=== PATIENT | female | born 1995 | race Hispanic/Latino ===

== ENCOUNTER 2019-09-21 20:14 | Emergency (ER) | payer SELFPAY ==
[2019-09-21] MEDS ORDERED: Ibuprofen 200 MG TAB ONE (20:52)
--- NOTE | 2019-09-21 20:57 | RAD ---
XR Hand Lt 3 View STANDARD History: Index finger injury Comparison: None. Findings: Soft tissue amputation through the lateral margin of distal phalanx index finger. Likely ex posed bone without osseous amputation. No fracture. No radiopaque foreign object. Impression: Soft tissue amputation through the lateral margin distal phalanx soft tissue tuft index f davey as described.
== END 2019-09-21 21:51 | disposition home or self-care (01) ==
LOC: ERS 20:14
DX: S68.121A Partial traumatic metacarpophalangeal amputation of left index finger, initial encounter (principal); F41.9 Anxiety disorder, unspecified; F32.9 Major depressive disorder, single episode, unspecified; Z87.891 Personal history of nicotine dependence; W26.0XXA Contact with knife, initial encounter

== ENCOUNTER 2021-12-13 22:21 | Observation (INO) | payer OTHER, SELFPAY ==
[~2021-12-13 22:21] MED LIST: ISOVUE-370 76%-LOCM 1 ML ONE
[2021-12-13] MEDS ORDERED: Boostrix 0.5 ML (Tdap) VIAL ONE (22:38)
[2021-12-13] MEDS ORDERED: CEFAZOLIN 2 GM VIAL ONE (22:38)
[2021-12-13] MEDS ORDERED: Morphine 4 MG/ML VIAL ONE (22:38)
[2021-12-13 23:10] LABS: #Basophils 0.1 thou/uL (0.0-0.2); #Eosinphils 0.1 thou/uL (0.0-0.7); #Lymphocytes 4.5 thou/uL (1.20-3.40); #Monocytes 0.8 thou/uL (0.11-0.59); #Neutrophils 8.6 thou/uL (1.40-6.50); %Basophils 0.5 % (0.0-1.0); %Eosinophils 0.8 % (0.0-10.0); %Monocytes 5.6 % (0.0-10.0); %Neutrophils 61.2 % (42.0-75.0); Hemoglobin 11.6 g/dL (12.0-16.0); Mean Corpuscular HGB CONC 33.1 g/dL (32.0-36.0); Mean Corpuscular Hemoglobin 32.2 pg (27.0-31.0); Mean Corpuscular Volume 97.1 fL (78.0-98.0); Mean Platelet Volume 8.2 fL (7.4-10.4); Platelet Count 280 thou/uL (130-400); RBC Distribution Width 11.9 % (11.5-14.5); White Blood Cell (WBC) Count 14.1 thou/uL (4.8-10.8)
[2021-12-13] MEDS ORDERED: Lidocaine 1% w/Epinephrine 1:100K 20 ML VIAL ONE (23:10)
[2021-12-13] MEDS ORDERED: Bacitracin 1 PK ONE (23:10)
[2021-12-13 23:24] LABS: BHCG - Serum Negative (NEGATIVE); Pregs Control Background? CLEAR/WHITE (CLR/WHITE); Pregs Control Bar Appear? YES (CONTROL BAR)
[2021-12-13 23:33] LABS: ALT (SGPT) 19 U/L (8-55); AST (SGOT) 30 U/L (5-34); Albumin 3.5 g/dL (3.5-5.0); Alcohol Less than 10 mg/dL (Less than 10); Alkaline Phosphatase 69 U/L (40-110); Anion Gap 11 mmol/L (10-20); BUN (Urea Nitrogen) 13 mg/dL (7.0-18.7); Bilirubin, Total 0.3 mg/dL (0.2-1.2); Calc. Creatinine Clearance 0 mL/min (70-130); Calcium 8.8 mg/dL (7.8-10.44); Carbon Dioxide 22 mmol/L (22-29); Chloride 105 mmol/L (98-107); Globulin 2.7 g/dL (2.4-3.5); Glucose 148 mg/dL (70-105); Potassium 3.7 mmol/L (3.5-5.1); Protein, Total 6.2 g/dL (6.0-8.3); Sodium 134 mmol/L (136-145)
[2021-12-13] MEDS ORDERED: Midazolam HCl 2 mg/2 ml Vial ONE (23:46)
[2021-12-14] MEDS ORDERED: Tranexamic Acid 1,000 MG/10 ML VIAL ONE (00:56)
[2021-12-14] MEDS ORDERED: Dextrose 50% Abboject 50 ML SYRINGE SLOW IVP PRN (01:10)
[2021-12-14] MEDS ORDERED: Ondansetron PF 4 MG/2 ML Vial IVP PRN (01:10)
[2021-12-14] MEDS ORDERED: traMADol HCl 50 MG TAB PO PRN (01:10)
[2021-12-14] MEDS ORDERED: Dextrose 5% in Water 1,000 ML IV PRN (01:10)
[2021-12-14] MEDS ORDERED: Ondansetron ODT 4 MG TAB PO PRN (01:10)
[2021-12-14] MEDS ORDERED: Sodium Chloride 0.9% 1,000 ML IV SCH (03:00)
[2021-12-14 03:24] LABS: #Lymphocytes 1.1 thou/uL (1.20-3.40); #Monocytes 0.9 thou/uL (0.11-0.59); #Neutrophils 13.1 thou/uL (1.40-6.50); %Basophils 0.2 % (0.0-1.0); %Eosinophils 0.1 % (0.0-10.0); %Lymphocytes 7.4 % (21.0-51.0); %Monocytes 5.7 % (0.0-10.0); %Neutrophils 86.5 % (42.0-75.0); Hemoglobin 10.2 g/dL (12.0-16.0); Mean Corpuscular HGB CONC 32.7 g/dL (32.0-36.0); Mean Corpuscular Volume 97.9 fL (78.0-98.0); Mean Platelet Volume 8.7 fL (7.4-10.4); Platelet Count 243 thou/uL (130-400); RBC Distribution Width 12.1 % (11.5-14.5); Red Blood Cell (RBC) Count 3.18 mill/uL (4.20-5.40); White Blood Cell (WBC) Count 15.1 thou/uL (4.8-10.8)
[2021-12-14 03:47] LABS: Anion Gap 11 mmol/L (10-20); BUN (Urea Nitrogen) 9 mg/dL (7.0-18.7); Calc. Creatinine Clearance 0 mL/min (70-130); Calcium 7.9 mg/dL (7.8-10.44); Carbon Dioxide 21 mmol/L (22-29); Chloride 107 mmol/L (98-107); Glucose 117 mg/dL (70-105); Potassium 3.8 mmol/L (3.5-5.1); Sodium 135 mmol/L (136-145)
[2021-12-14 04:37] VITALS: BMI 28.8
[2021-12-14] MEDS: Acetaminophen 500 MG TAB PO SCH ×2 (05:20→12:12)
[2021-12-14 06:28] LABS: SARS-CoV-2 NAA Rapid Test Not Detected (NotDetected)
[2021-12-14] MEDS ORDERED: Famotidine 20 MG TAB PO SCH (09:00)
[2021-12-14 12:43] VITALS: BP 107/66; TEMP 97.7
== END 2021-12-14 16:55 | disposition home or self-care (01) ==
LOC: ERS 22:21 → SURG A 12-14 01:10
PROVIDERS: ADMIT Specialist; ATTEND Specialist
DX: S01.01XA Laceration without foreign body of scalp, initial encounter (principal); S06.0X9A Concussion with loss of consciousness of unspecified duration, initial encounter; I95.9 Hypotension, unspecified; F17.290 Nicotine dependence, other tobacco product, uncomplicated; D50.0 Iron deficiency anemia secondary to blood loss (chronic); G89.11 Acute pain due to trauma; S80.12XA Contusion of left lower leg, initial encounter; S80.11XA Contusion of right lower leg, initial encounter; N83.201 Unspecified ovarian cyst, right side; Z20.822 Contact with and (suspected) exposure to COVID-19; V49.50XA Passenger injured in collision with unspecified motor vehicles in traffic accident, initial encounter
CPT/HCPCS: 36415; 70450; 71045; 71260; 72125; 74177; 80048; 80053; 80307; 84703; 85025; 86850; 86900; 86901; 90715; 93005; G0378; J0690; J2250; J2270; J7050; Q9966; U0002